=== PATIENT | female | born 1985 | race Caucasian/White ===

== ENCOUNTER → 2021-04-22 15:14 | Outpatient (BNVA) | payer SELFPAY | PROVIDERS: Family Provider Pediatrics; Visit Provider Nurse Practitioner Family | DX: R42 Dizziness and giddiness (principal); R53.83 Other fatigue | CPT/HCPCS: 80053; 82607; 82728; 83550; 84443; 85025 ==

== ENCOUNTER → 2023-01-21 13:10 | Outpatient (BNVA) | payer BC, MEDICAID, SELFPAY | PROVIDERS: Family Provider Pediatrics; Visit Provider Nurse Practitioner Family | DX: R10.32 Left lower quadrant pain (principal); Z32.00 Encounter for pregnancy test, result unknown | CPT/HCPCS: 81000; 81025 ==

== ENCOUNTER → 2023-06-19 11:06 | Outpatient (BNVA) | payer BC, MEDICAID, SELFPAY | PROVIDERS: Family Provider Pediatrics; Visit Provider Emergency Medicine | DX: J98.8 Other specified respiratory disorders (principal); B97.89 Other viral agents as the cause of diseases classified elsewhere; J02.9 Acute pharyngitis, unspecified | CPT/HCPCS: 87071; 87400; 87426; 87880 ==